=== PATIENT | female | born 1965 | race Caucasian/White ===

== ENCOUNTER 2019-07-09 11:08 | Outpatient (CLI) | payer BC ==
--- NOTE | 2019-07-09 12:08 | MMO ---
Bilateral MAMMO Bilat Screen [facility]. CLINICAL HISTORY: Patient is 53 years old and is seen for screening. The patient has no family history of breast cancer. The patient has no personal history of cancer. VIEWS: The views performed were: bilateral craniocaudal with tomosynthesis and bilateral mediolateral oblique with tomosynthesis. FILMS COMPARED: The present examination has been compared to prior imaging studies performed at [facility] on 07/16/2014, 07/24/2015, 08/19/2016 and 11/03/2017. This study has been interpreted with the assistance of computer-aided detection. MAMMOGRAM FINDINGS: The breasts are heterogeneously dense, which could obscure a lesion on mammography. Finding 1: There are stable benign appearing calcifications seen in both breasts. Finding 2: There are stable benign appearing densities seen in both breasts. There are no suspicious masses, suspicious calcifications, or new areas of architectural distortion. IMPRESSION: THERE IS NO MAMMOGRAPHIC EVIDENCE OF MALIGNANCY. A ROUTINE FOLLOW-UP MAMMOGRAM IN 1 YEAR IS RECOMMENDED. THE RESULTS OF THIS EXAM WERE SENT TO THE PATIENT. ACR BI-RADS Category 2 - Benign finding MAMMOGRAPHY NOTE: 1. A negative mammogram report should not delay a biopsy if a dominant of clinically suspicious mass is present. 2. Approximately 10% to 15% of breast cancers are not detected by mammography. 3. Adenosis and dense breasts may obscure an underlying neoplasm. Reported by: RUBEN KELLOGG MD Electonically Signed: [id number]
--- NOTE | 2019-07-09 12:26 | BD ---
DEXA BONE MINERAL DENSITY STUDY: HISTORY: Osteoporosis screening. COMPARISON: None. FINDINGS: Lumbar Spine: BMD (g/cm2) L1 0.877 T-Score: -1.0 Z-Score: -0.2 L2 0.953 T-Score: -0.7 Z-Score: 0.2 L3 1.059 T-Score: -0.2 Z-Score: 0.7 L4 0.984 T-Score: -0.7 Z-Score: 0.3 L1-L4 0.969 T-Score: -0.7 Z-Score: 0.2 Femoral Neck: 0.761 T-Score: -0.8 Z-Score: 0.1 Total Femur: 0.901 T-Score: -0.3 Z-Score: 0.2 WHO CLASSIFICATION: Normal. Impression: Normal bone mineral density. POS: [facility]
== END 2019-07-09 11:09 | disposition home or self-care (01) ==
LOC: BICMAMMO 11:08
PROVIDERS: ATTEND Obstetrics & Gynecology
DX: Z12.31 Encounter for screening mammogram for malignant neoplasm of breast (principal); Z13.820 Encounter for screening for osteoporosis
CPT/HCPCS: 77063; 77067; 77080

== ENCOUNTER 2020-10-16 13:12 | Outpatient (CLI) | payer BC | END 2020-10-16 13:13 | disposition home or self-care (01) | LOC: BICMAMMO 13:12 | PROVIDERS: ATTEND Obstetrics & Gynecology | DX: Z12.31 Encounter for screening mammogram for malignant neoplasm of breast (principal) | CPT/HCPCS: 77063; 77067 ==

== ENCOUNTER 2022-02-10 08:03 | Outpatient (CLI) | payer BC | END 2022-02-10 08:04 | disposition home or self-care (01) | LOC: BICMAMMO 08:03 | PROVIDERS: ATTEND Obstetrics & Gynecology | DX: Z12.31 Encounter for screening mammogram for malignant neoplasm of breast (principal) | CPT/HCPCS: 77063; 77067 ==

== ENCOUNTER 2025-04-02 08:05 | Outpatient (CLI) | payer BC | END 2025-04-02 08:06 | disposition home or self-care (01) | LOC: SCSBT 08:05 | DX: Z13.820 Encounter for screening for osteoporosis (principal); M85.89 Other specified disorders of bone density and structure, multiple sites | CPT/HCPCS: 77080 ==